=== PATIENT | male | born 1990 | race Caucasian/White ===

== ENCOUNTER 2019-09-08 11:53 | Observation (INO) | payer BC, SELFPAY ==
[2019-09-08] VITALS (11 sets, daily range): BP systolic 107–150; BP diastolic 60–86; PULSE 57–77; RESP 16–18; TEMP 36.8–37.5; O2SAT 95–99; BMI 11.8; BMI 23.7
[2019-09-08 12:23] LABS: Basophils % 0.4 %; Eosinophils # 0.4 10^3/uL (0.0-0.8); Hemoglobin 13.9 g/dL (11.7-16.6); Lymphocytes % 19.3 %; Mean Corpuscular HGB Conc 33.1 g/dL (30.0-36.0); Mean Corpuscular Hemoglobin 29.3 pg (28.0-34.0); Mean Corpuscular Volume 88.4 fL (80-94); Mean Platelet Volume 9.2 fL (7.4-10.4); Monocytes # 0.8 10^3/uL (0.2-0.9); Monocytes % 7.4 %; Neutrophils # 7.1 10^3/uL (1.8-7.7); Neutrophils % 68.6 %; Nucleated Red Blood Cells % 0 %; Platelet Count 344 10^3/cmm (130-400); Red Blood Count 4.75 10^6/uL (4.1-5.3); Red Cell Distribution Width 12.9 % (12.1-15.1); White Blood Count 10.4 10^3/uL (4.0-10.0)
--- NOTE | 2019-09-08 12:30 | CT_ITS ---
WS: [id number] CT scan of the abdomen and pelvis with IV contrast. Additional two-dimensional coronal and sagittal r econstruction was performed. 09/08/2019 Clinical Data: R sided abdominal pain, fevers Comparison: None. DLP: 537.[address] scans at [facility] use at least one of these dose optimization techniques: automat ed exposure control; mA and/or kV adjustment per patient size (includes targeted exams where dose is matched to clinical indication); or iterative reconstruction. Findings: The lower lungs show no nodules, masses or effusions. The liver, gallbladder, spleen, adrenal glands and pancreas are normal. The kidneys show equal bilateral contrast excretion with no cyst or masses. No hydronephrosis or jeimy l calculi can be seen. The abdominal aorta is normal in size. No appendicitis or diverticulitis is seen. The stomach, small bowel and colon show only extensive div erticula of the sigmoid colon. No abscess, adenopathy, ascites, mass, obstruction or free air is seen . The bladder is unremarkable. No inguinal hernia is seen. The bones of the lower thorax, lumbar spine, pelvis, and hips are normal. CT/CT abdomen pelvis w con* [id number] Impression: Negative CT scan of the abdomen and pelvis.
--- NOTE | 2019-09-08 12:31 | W.ED.ABDPA2 ---
HPI - Abdominal Pain General: Chief Complaint: Abdominal Pain Stated Complaint: ABD PAIN Time Seen by Provider: 09/08/19 12:04 Source: patient and family Mode of arrival: ambulatory Limitations: no limitations History of Present Illness: HPI narrative: Patient is a very nice 29-year-old male who presents to ED today with complaints of right-sided abdominal pain. Patient tells me the pain initially began approximately 3 to 4 days ago. He states pain improved slightly after about a day but then returned and has progressively worsened since that time. Patient states he has nausea and has had a few episodes of nonbloody vomit. He reports normal bowel and urinary habits. He does report fevers of up to 105. He states last fever was yesterday. He has been afebrile throughout today. MD elicited complaint: abdominal pain Pertinent past history: none Onset (ago): day(s) Pain Consistency: constant Location: RUQ and RLQ Severity: severe Quality: stabbing and aching Radiation: none Migration to: no migration Exacerbating factors: eating and movement Relieving factors: nothing Associated Symptoms: Reports fever(s), nausea and vomiting; Denies change in bowel habits, change in stool character, chills, coffee ground emesis, constipation, diarrhea, dysuria, hematochezia, melena and syncope Review of Systems Const: Reports: fever; Denies: chills, body aches, change in appetite, change in weight, fatigue or malaise ENMT: Denies: throat pain, enlarged tonsils or painful swallowing Card: Denies: chest pain, palpitations, irregular heart rhythm, edema, lightheadedness, syncope or pre-syncope Resp: Denies: shortness of breath, productive cough, coughing up blood or chest congestion GI: Reports: abdominal pain, nausea and vomiting; Denies: coffee grounds in vomit, diarrhea, constipation, change in bowel habits, painful bowel movements, change in stool character, blood in stool, black tarry stool, white/light colored stool or fatty stool : Denies: flank pain, difficulty urinating, painful urination, urinary frequency, urinary urgency or urinary hesitancy Musc: Denies: neck pain or back pain Skin/Breast: Denies: rash Neuro: Denies: headache, numbness in extremities, weakness in extremities or changes in sensation [facility] ED PFSH: Social History (Updated 09/08/19 @ 16:45 by Damián Luciano MD) Smoking and tobacco status: current every day smoker Alcohol intake: never Substance/Drug Use: never Physical Exam Const: COMMON NORMALS: average body habitus, oriented x3, no limitations, healthy appearing, alert and well nourished GENERAL APPEARANCE: in distress (mild secondary to pain) Resp: COMMON NORMALS: normal respiratory effort and clear to auscultation bilaterally AUSCULTATION: clear to auscultation bilaterally Cardio: COMMON NORMALS: regular rate and regular rhythm RATE: regular rate RHYTHM: regular rhythm GI: COMMON NORMALS: normal to inspection, nondistended, normoactive bowel sounds, no hepatosplenomegaly and no masses PALPATION: Yes tender (throughout R side of abdomen), Yes guarding, Yes rigid, Yes no hepatosplenomegaly and Yes other (positive psoas, obturator, and heel tap) : COMMON NORMALS: Yes no CVA tenderness BLADDER/KIDNEY EXAM: Yes no CVA tenderness Back/Pelvis: COMMON NORMALS: no CVA tenderness, thoracic and lumbar spine normal to inspection and no thoracic nor lumbar tenderness Extremity: COMMON NORMALS: normal to inspection Neuro: COMMON NORMALS: oriented x3 SENSORIUM/ORIENTATION: Yes alert Skin: COMMON NORMALS: no rashes or lesions noted GENERAL SKIN EXAM: no rashes or lesions noted Course Vital Signs: Vital signs: Vital Signs Temperature 98.9 F 09/08/19 15:05 Pulse Rate 60 09/08/19 15:05 Respiratory Rate 17 09/08/19 15:05 Blood Pressure 120/68 09/08/19 15:05 Pulse Oximetry 99 09/08/19 15:05 MDM - Abdominal Pain MDM Narrative: Medical decision making narrative: Patient CT scan was read as negative. I did contact the radiologist Dr. Moore to make certain as patient seems to be exquisitely tender. Dr. Moore stated he did not directly visualize patient's appendix but there were no secondary findings of acute appendicitis. Patient has extreme tenderness, rigid abdomen, and guarding throughout his right side. I spoke to Dr. Beltran who also evaluated patient and agrees with exam findings. He has required several doses of IV pain medications for control. We will obtain ultrasound of his right upper quadrant and speak to either hospitalist for pain control or try to consult general surgery. Dr. Jennings was contacted by Dr. Beltran and stated hospitalist could consult him if needed. Dr. Beltran spoke to Dr. Luciano who will admit patient Lab Data: Labs: Lab Results 09/08/19 09/08/19 09/08/19 Range/Units 12:14 12:14 12:14 WBC 10.4 H (4.0-10.0) 10^3/ uL RBC 4.75 (4.1-5.3) 10^6/u L Hgb 13.9 (11.7-16.6) g/dL Hct 42.0 (42.0-52.0) % MCV 88.4 (80-94) fL MCH 29.3 (28.0-34.0) pg MCHC 33.1 (30.0-36.0) g/dL RDW 12.9 (12.1-15.1) % Plt Count 344 (130-400) 10^3/c mm MPV 9.2 (7.4-10.4) fL Neut % (Auto) 68.6 % Lymph % (Auto) 19.3 % [place] % (Auto) 7.4 % Eos % (Auto) 4.0 % Baso % (Auto) 0.4 % Neut # (Auto) 7.1 (1.8-7.7) 10^3/u L Lymph # (Auto) 2.0 (0.8-4.8) 10^3/u L [place] # (Auto) 0.8 (0.2-0.9) 10^3/u L Eos # (Auto) 0.4 (0.0-0.8) 10^3/u L Baso # (Auto) 0.0 (0.0-0.1) 10^3/u L Nucleated RBC % (a uto) 0 % Nucleated RBCs # 0.0 /100WBC Sodium 137 (136-145) mmol/L Potassium 3.6 (3.5-5.1) mmol/L Chloride 97 L (98-107) mmol/L Carbon Dioxide 26 (22-29) mmol/L Anion Gap 17.6 (5-19) BUN 8 (6-20) mg/dL Creatinine 0.8 (0.7-1.2) mg/dL GFR Calculation 114.3 (90-130) mL/min Glucose 117 H (65-115) mg/dL Calculated Osmolal ity 281 L (285-295) mOsm/k g Lactate 0.9 (0.5-2.2) mmol/L Calcium 9.7 (8.5-10.5) mg/dL Total Bilirubin 0.3 (0.15-1.2) mg/dL AST 19 (0-40) U/L ALT 22 (0-41) U/L Alkaline Phosphata se 66 (40-130) IU/L C-Reactive Protein (0.0-4.9) mg/L Total Protein 7.6 (6.6-8.7) g/dL Albumin 4.4 (3.5-5.2) g/dL Globulin 3.2 (1.3-4.6) g/dL Lipase 12 L (13-60) U/L Procalcitonin (0-0.5) ng/mL Urine Color (Yellow) Urine Appearance (CLEAR) Urine pH (5-7) Ur Specific Gravit y (1.005-1.030) Urine Protein (Negative) Urine Glucose (UA) (Normal) Urine Ketones (Negative) Urine Blood (Negative) Urine Nitrate (Negative) Urine Bilirubin (NEGATIVE) Urine Urobilinogen (Negative) mg/dL Ur Leukocyte Ade ase (Negative) 09/08/19 09/08/19 09/08/19 Range/Units 12:14 12:14 13:12 WBC (4.0-10.0) 10^3/ uL RBC (4.1-5.3) 10^6/u L Hgb (11.7-16.6) g/dL Hct (42.0-52.0) % MCV (80-94) fL MCH (28.0-34.0) pg MCHC (30.0-36.0) g/dL RDW (12.1-15.1) % Plt Count (130-400) 10^3/c mm MPV (7.4-10.4) fL Neut % (Auto) % Lymph % (Auto) % [place] % (Auto) % Eos % (Auto) % Baso % (Auto) % Neut # (Auto) (1.8-7.7) 10^3/u L Lymph # (Auto) (0.8-4.8) 10^3/u L [place] # (Auto) (0.2-0.9) 10^3/u L Eos # (Auto) (0.0-0.8) 10^3/u L Baso # (Auto) (0.0-0.1) 10^3/u L Nucleated RBC % (a uto) % Nucleated RBCs # /100WBC Sodium (136-145) mmol/L Potassium (3.5-5.1) mmol/L Chloride (98-107) mmol/L Carbon Dioxide (22-29) mmol/L Anion Gap (5-19) BUN (6-20) mg/dL Creatinine (0.7-1.2) mg/dL GFR Calculation (90-130) mL/min Glucose (65-115) mg/dL Calculated Osmolal ity (285-295) mOsm/k g Lactate (0.5-2.2) mmol/L Calcium (8.5-10.5) mg/dL Total Bilirubin (0.15-1.2) mg/dL AST (0-40) U/L ALT (0-41) U/L Alkaline Phosphata se (40-130) IU/L C-Reactive Protein 21.8 H (0.0-4.9) mg/L Total Protein (6.6-8.7) g/dL Albumin (3.5-5.2) g/dL Globulin (1.3-4.6) g/dL Lipase (13-60) U/L Procalcitonin 0.23 (0-0.5) ng/mL Urine Color Yellow (Yellow) Urine Appearance Clear (CLEAR) Urine pH 7 (5-7) Ur Specific Gravit y 1.000 L (1.005-1.030) Urine Protein Neg (Negative) Urine Glucose (UA) Norm (Normal) Urine Ketones 1+ H (Negative) Urine Blood Neg (Negative) Urine Nitrate Negative (Negative) Urine Bilirubin Neg (NEGATIVE) Urine Urobilinogen Norm (Negative) mg/dL Ur Leukocyte Ade ase Negative (Negative) Discharge Plan Discharge Patient Disposition: Admitted As Inpatient Clinical Impression: Uncontrolled pain Abdominal pain Qualifiers: Abdominal location: right lower quadrant Qualified Code(s): R10.31 - Right lower quadrant pain Condition: Stable Referrals: Vasu Willis MD [Primary Care Provider] - Coding Level of Care Code ED Research And Development Specialist for Chg Fwd Exam Comprehensive
[2019-09-08] MEDS: ondansetron 2 mg/ML SDV 2 mL 4 MG IVP (12:34)
[2019-09-08] MEDS: sodium chloride 0.9% 1,000 ML 999 ML IV (12:34)
[2019-09-08] MEDS: morphine 4 mg/mL SDV 1 mL IVP ×2 (12:37→15:02)
[2019-09-08 12:41] LABS: Alanine Aminotransferase 22 U/L (0-41); Albumin Level 4.4 g/dL (3.5-5.2); Alkaline Phosphatase 66 IU/L (40-130); Anion Gap 17.6 (5-19); Aspartate Amino Transferase 19 U/L (0-40); Blood Urea Nitrogen 8 mg/dL (6-20); Calcium 9.7 mg/dL (8.5-10.5); Carbon Dioxide 26 mmol/L (22-29); Chloride 97 mmol/L (98-107); Globulin 3.2 g/dL (1.3-4.6); Glomerular Filtration Rate 114.3 mL/min (90-130); Glucose 117 mg/dL (65-115); Lipase 12 U/L (13-60); Osmolality Calculated 281 mOsm/kg (285-295); Potassium 3.6 mmol/L (3.5-5.1); Sodium 137 mmol/L (136-145); Total Bilirubin 0.3 mg/dL (0.15-1.2); Total Protein 7.6 g/dL (6.6-8.7)
[2019-09-08] MEDS: iohexol 300 mg/mL 100 mL Btl IV (12:49)
[2019-09-08 13:30] LABS: Add Urine Microscopic? NO
[2019-09-08 13:32] LABS: Bilirubin Urine Neg (NEGATIVE); Blood Urine Neg (Negative); Glucose Urine UA Norm (Normal); Ketones Urine 1+ (Negative); Leukocyte Esterase Urine Negative (Negative); Nitrate Urine Negative (Negative); Protein Urine Neg (Negative); Urine Appearance Clear (CLEAR); Urine Color Yellow (Yellow); Urobilinogen Urine Norm (Negative); pH Urine 7 (5-7)
[2019-09-08 13:37] LABS: Lactate (Lactic Acid level) 0.9 mmol/L (0.5-2.2)
[2019-09-08] MEDS: fentaNYL 50 mcg/mL INJ 2mL IVP (13:38)
[2019-09-08 14:14] LABS: C Reactive Protein 21.8 mg/L (0.0-4.9)
--- NOTE | 2019-09-08 14:53 | US_ITS ---
WS: [id number] ABDOMINAL ULTRASOUND LIMITED REASON FOR VISIT: RUQ pain. TECHNIQUE: Grayscale and Doppler ultrasound examination of the abdomen. FINDINGS: Pancreas: There is normal. Abdominal aorta and IVC: Appears normal. Liver: Liver measures 14.9 cm in length. Normal hepatopedal circulation. Liver measured 14.87 cm. Gallbladder: Gallbladder wall thickness measures 0.2 mm. No stones identified. Right kidney: Right kidney measures 11.9 cm x 5.9 cm x 4.7 cm. No hydronephrosis or stones US/US gall bladder [id number] IMPRESSION: Normal abdominal survey by ultrasound.
--- NOTE | 2019-09-08 16:40 | P.HP_ITS ---
Providers/Chief Complaint Primary Care Provider: Samm Willis Chief Complaint: ABD PAIN History of Present Illness Patrick Alvarez is a 29 year old male with no significant past medical history, who does not have a primary care physician, has not sought medical attention in many years, who presents the emergency room due to abdominal pain for 4 days. 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 But patient thought nothing much of his pain, said he followed through it, patient states that the pain episodes became much more frequent, much more severe, more longer lasting, he was spiking fevers as high as 103, poor appetite, last meal was last , having appropriate bowel movements, last bowel movement was 24 hours ago, no dysuria, no hematuria, no recent travel. Patient does state that recently his son was diagnosed with infectious mononucleosis. Denies sore throat. Denies tender lymphadenopathy. Denies history of food poisoning. Patient states that the abdominal pain then progressed to his general abdomen, particular in the right upper quadrant and left lower quadrant, and in the umbilicus. But primarily his pain was centered in the right lower quadrant. Denies any surgeries. No URI symptoms. Review of Systems Const: Reports: fever, fatigue and malaise; Denies: chills Eyes: Denies: change in vision or blurry vision ENMT: Denies: nasal congestion Resp: Denies: shortness of breath, productive cough, non-productive cough or wheezing GI: Reports: abdominal pain, nausea and feeling full early; Denies: vomiting, vomiting blood, diarrhea, constipation, blood in stool or black tarry stool : Denies: flank pain, difficulty urinating, painful urination or urinary frequency Musc: Denies: neck pain or back pain Skin/Breast: Denies: rash Neuro: Denies: headache, dizziness or vertigo Psych: Denies: anxiety or depression Endo: Denies: excessive urination or excessive thirst Medications/Allergies Home Medications Medication Instructions Recorded Confirmed Last Taken Type No Known Home Medications 09/08/19 09/08/19 Unknown History Allergies Allergy/AdvReac Type Severity Reaction Status Date / Time Penicillins Allergy Unknown Verified 09/08/19 12:11 Sulfa (Sulfonamide Allergy ALGY-Difficulty Verified 09/08/19 12:11 Antibiotics) Breathing PFSH Acute PFSH: Social History (Updated 09/08/19 @ 16:45 by Damián Luciano MD) Smoking and tobacco status: current every day smoker Alcohol intake: never Substance/Drug Use: never Vitals/I&O/Wt Last Vital Signs Temp 98.9 F 09/08/19 15:05 Pulse 60 09/08/19 15:05 Resp 17 09/08/19 15:05 BP 120/68 09/08/19 15:05 Pulse Ox 99 09/08/19 15:05 09/08/19 09/08/19 09/08/19 06:59 14:59 22:59 Intake Total 1000 / 1000 Balance 1000 / 1000 Weight last 48 hrs Weight 36.287 kg Physical Exam Const: COMMON NORMALS: no apparent distress and oriented x3 GENERAL APPEARANCE: cooperative and comfortable HENMT: COMMON NORMALS: normocephalic HEAD & SCALP: normocephalic Eye: COMMON NORMALS: PERRL, EOMs intact bilaterally and no papilledema G ENERAL EYE: normal appearance of both eyes PUPIL: Yes PERRL DIRECT OPHTHALMOSCOPY: Yes no papilledema Neck/C-Spine: COMMON NORMALS: full ROM, no lymphadenopathy, no JVD and thyroid normal THYROID: thyroid normal Lymph: LYMPHATIC: no lymphadenopathy noted Resp: COMMON NORMALS: normal respiratory effort, no retractions, no use of accessory muscles and clear to auscultation bilaterally AUSCULTATION: clear to auscultation bilaterally Cardio: COMMON NORMALS: no JVD, regular rate, regular rhythm, S1 normal heart sound, S2 normal heart sound, no gallops, no clicks and no murmurs RATE: regu lar rate RHYTHM: regular rhythm HEART SOUNDS: S1 normal and S2 normal GI: COMMON NORMALS: normal to inspection, nondistended, normoactive bowel sounds, soft to palpation and no hepatosplenomegaly PALPATION: Yes soft, Yes tender Details: LLQ, RLQ and RUQ, Yes guarding in the RLQ and in the RUQ, No rigid, Yes no hepatosplenomegaly, No mass and Yes rebound tenderness present Details: McBurney's point and periumbilical PERCUSSION: normal to percussion Extremity: COMMON NORMALS: normal to inspection, full ROM and no pedal edema Neuro: COMMON NORMALS: oriented x3, CN's II-XII intact bilaterally, moves all extremities and no focal motor deficits Psych: COMMON NORMALS: mental status grossly normal, thought process normal and cooperative THOUGHT PROCESS: normal thought process Data : 09/08/19 12:14 09/08/19 12:14 Micro: Microbiology 09/08/19 13:19 Blood Culture - Preliminary Blood SPECIMEN COLLECTED 09/08/19 12:14 Blood Culture - Preliminary Blood SPECIMEN COLLECTED A&P Assessment and plan (1) Abdominal pain: -Normotensive, afebrile, no significant leukocytosis, no significant LFT abnormalities, no alk phos elevation, no significant inflammatory marker ab normalities -CT scan does show some mild colitis, duodenitis, thickening around hepatic flexure -Possibly mesenteric adenitis -Appendix is within normal limits -Patient does have quite guarding, tenderness, rebound tenderness in the right lower quadrant Plan: -Admit to general medical floors, IV fluids, pain control, serial abdominal exams, monitor for fevers Status: Acute Qualifiers: Abdominal location: right lower quadrant Qualified Code(s): R10.31 - Right lower quadrant pain Code(s): R10.9 - Unspecified abdominal pain Attestations Medical Necessity Statement*: Patient requires hospitalization, outpatient with observation, for abdominal pain Coding Level of Care Code Acute Supervisor Channel Process for [facility] Diagnoses Abdominal pain R10.31 Abdominal location: right lower quadrant
[2019-09-08 16:44] LABS: Procalcitonin 0.23 ng/mL (0-0.5)
[2019-09-08 17:11] LABS: Erythrocyte Sedimentation Rate 33 mm/hr (0-10)
[2019-09-08] MEDS: enoxaparin 40 mg/0.4 mL Syringe SUBCUT (17:52)
[2019-09-08] MEDS: sodium chloride 0.9% 1,000 ML 100 ML IV (17:52)
[2019-09-08] MEDS: morphine 4 mg/mL SDV 1 mL 2 MG IVP (19:21)
[2019-09-09] VITALS (10 sets, daily range): BP systolic 105–129; BP diastolic 59–74; PULSE 53–62; RESP 18–22; TEMP 36.6–37; O2SAT 96–99
[2019-09-09] MEDS: sodium chloride 0.9% 1,000 ML 100 ML IV (03:14)
[2019-09-09] MEDS: morphine 4 mg/mL SDV 1 mL 2 MG IVP ×3 (04:51→14:38)
[2019-09-09 05:59] LABS: Basophils # 0.1 10^3/uL (0.0-0.1); Basophils % 0.7 %; Eosinophils # 0.7 10^3/uL (0.0-0.8); Eosinophils % 7.6 %; Hematocrit 40.1 % (42.0-52.0); Hemoglobin 12.9 g/dL (11.7-16.6); Lymphocytes # 2.7 10^3/uL (0.8-4.8); Lymphocytes % 31.2 %; Mean Corpuscular HGB Conc 32.2 g/dL (30.0-36.0); Mean Corpuscular Hemoglobin 29.1 pg (28.0-34.0); Mean Corpuscular Volume 90.5 fL (80-94); Mean Platelet Volume 9.6 fL (7.4-10.4); Monocytes # 0.7 10^3/uL (0.2-0.9); Monocytes % 8.1 %; Neutrophils # 4.5 10^3/uL (1.8-7.7); Neutrophils % 51.8 %; Nucleated Red Blood Cells % 0 %; Platelet Count 329 10^3/cmm (130-400); Red Blood Count 4.43 10^6/uL (4.1-5.3); Red Cell Distribution Width 13.1 % (12.1-15.1); White Blood Count 8.7 10^3/uL (4.0-10.0)
[2019-09-09 06:03] LABS: Alanine Aminotransferase 16 U/L (0-41); Albumin Level 3.9 g/dL (3.5-5.2); Alkaline Phosphatase 59 IU/L (40-130); Anion Gap 14.9 (5-19); Aspartate Amino Transferase 12 U/L (0-40); Blood Urea Nitrogen 7 mg/dL (6-20); Calcium 9.2 mg/dL (8.5-10.5); Carbon Dioxide 26 mmol/L (22-29); Chloride 103 mmol/L (98-107); Globulin 2.7 g/dL (1.3-4.6); Glomerular Filtration Rate 114.3 mL/min (90-130); Glucose 97 mg/dL (65-115); Osmolality Calculated 286 mOsm/kg (285-295); Potassium 3.9 mmol/L (3.5-5.1); Sodium 140 mmol/L (136-145); Total Bilirubin 0.4 mg/dL (0.15-1.2); Total Protein 6.6 g/dL (6.6-8.7)
--- NOTE | 2019-09-09 08:00 | PC.NURSE ---
patient claims pain goes away and comes back. Patient says that the pain is sharp and in his right lower abdominal and has moved up to the bottom of his rib cage.
--- NOTE | 2019-09-09 09:53 | PC.NURSE ---
patient was in too much pain. Asked the patient if he would like me to check back with him later and he said yes.
--- NOTE | 2019-09-09 11:27 | PC.CHAP ---
Pastoral Care Encounter/Spiritual Assessment Type of Contact [] Declined economic forecaster visit [] Patient/Family/Request visit [] Outpatient visit [] Follow-up visit [] Physician referral [] Code/Alert [x] Routine visit [] Staff referral [] Actively dying [] Patient sleeping [] Family support [] [] Out of room [] Palliative care [] [] Receiving care in room [] Pre-surgical visit [] Trauma [] Long length of stay [] ICU visit [] Other: Relational/Emotional Strength [x] Patient feels connected with others/family/visitors/staff [] Distress [] Loneliness/isolation [] Abandonment Spirituality of Patient [x] Person of Prema [x] Attends Adventism of their Prema [x] Believes in Prayer [x] Reads Bible or Restorationism materials [] There are Spiritual issues to be addressed Fuel House Attendant Interventions [x] Prayer [x] Active listening [x] Non-anxious presence [x] Spiritual/emotional support [] Crisis/trauma care [x] Spiritual counseling [] Bereavement support [] Provided bereavement packet [] Provided Bible/devotional materials [] Provided toy/stuffed animal, coloring book to patient or family member [] Provided Communion [] Anointing/[place] [] Salvation [] Completed spiritual assessment [] Other: Impact on Illness or Injury [] Angry [] Fearful [] Anxious [] Often cries [] Exhaustion [] Unable to work [] Unable to attend sabianist [] Unable to walk/stand [] Unable to read [] Unable to drive [] Unable to eat/drink [] Unable to sleep [] Unable to be with family [] Patient intubated [x] Other: Summary Patient is and has 4-small children. Time spent with patient 5 minutes
[2019-09-09] MEDS: sodium chloride 0.9% 1,000 ML 125 ML IV ×2 (13:35→20:20)
--- NOTE | 2019-09-09 14:52 | PM.PN ---
Subjective Subjective: Interval history: This morning patient remained afebrile, normotensive, on room air, no significant inflammatory abnormalities, no significant leukocytosis, however patient continues to have significant pain and tenderness and guarding in the right lower quadrant and in the right lower quadrant, would like to try something more substantial Vitals/I&O/Wt Last Vital Signs Temp 98.4 F 09/09/19 11:25 Pulse 56 L 09/09/19 11:25 Resp 18 09/09/19 14:38 BP 115/70 09/09/19 11:25 Pulse Ox 96 09/09/19 11:25 09/08/19 09/09/19 09/09/19 22:59 06:59 14:59 Intake Total 240 / 1240 936.667 / 2176.667 540 / 540 Output Total 780 / 780 700 / 700 Balance 240 / 1240 156.667 / 1396.667 -160 / -160 Weight last 48 hrs Weight 72.83 kg Weight 36.287 kg Physical Exam Const: COMMON NORMALS: no apparent distress and oriented x3 GENERAL APPEARANCE: cooperative and comfortable Neck/C-Spine: COMMON NORMALS: no JVD Lymph: LYMPHATIC: no lymphadenopathy noted Resp: COMMON NORMALS: normal respiratory effort, no retractions, no use of accessory muscles and clear to auscultation bilaterally AUSCULTATION: clear to auscultation bilaterally Cardio: COMMON NORMALS: no JVD, regular rate, regular rhythm, S1 normal heart sound, S2 normal heart sound, no gallops, no clicks and no murmurs RATE: regular rate RHYTHM: regular rhythm HEART SOUNDS: S1 normal and S2 normal GI: COMMON NORMALS: normal to inspection, nondistended, normoactive bowel sounds, soft to palpation and no hepatosplenomegaly PALPATION: Yes soft, Yes tender, Yes guarding in the RLQ and in the RUQ, No rigid, Yes no hepatosplenomegaly, No mass and Yes rebound tenderness present Details: McBurney's point and periumbilical PERCUSSION: normal to percussion Neuro: COMMON NORMALS: oriented x3 Data : 09/09/19 04:52 09/09/19 04:52 Micro: Microbiology 09/08/19 13:19 Blood Culture - Preliminary Blood NEGATIVE TO DATE 09/08/19 12:14 Blood Culture - Preliminary Blood NEGATIVE TO DATE A&P Assessment and plan (1) Abdominal pain: -Normotensive, afebrile, no significant leukocytosis, no significant LFT abnormalities, no alk phos elevation, no significant inflammatory marker abnormalities -CT scan does show some mild colitis, duodenitis, thickening around hepatic flexure -Possibly mesenteric adenitis -Appendix is within normal limits -Patient does have quite guarding, tenderness, rebound tenderness in the right lower quadrant Plan: -, IV fluids, pain control, serial abdominal exams, monitor for fevers -If patient's symptoms persist will consider repeating CT scan in 24 hours -We will start treatment for possible irritable bowel syndrome dicyclomine and Elavil Status: Acute Qualifiers: Abdominal location: right lower quadrant Qualified Code(s): R10.31 - Right lower quadrant pain Code(s): R10.9 - Unspecified abdominal pain Attestations Medical Necessity Statement*: Patient requires hospitalization for abdominal pain Coding Level of Care Code Acute Apartment Maintenance for [facility] Diagnoses Abdominal pain R10.31 Abdominal location: right lower quadrant
[2019-09-09] MEDS: amitriptyline 25 mg Tablet PO (20:21)
[2019-09-10] VITALS (7 sets, daily range): BP systolic 97–129; BP diastolic 51–84; PULSE 54–64; RESP 16–18; TEMP 36.5–37.3; O2SAT 96–99
[2019-09-10] MEDS: sodium chloride 0.9% 1,000 ML 125 ML IV ×2 (03:47→12:17)
[2019-09-10 06:47] LABS: Basophils # 0.1 10^3/uL (0.0-0.1); Eosinophils # 0.6 10^3/uL (0.0-0.8); Eosinophils % 8.3 %; Hematocrit 36.8 % (42.0-52.0); Hemoglobin 11.9 g/dL (11.7-16.6); Lymphocytes # 2.5 10^3/uL (0.8-4.8); Lymphocytes % 32.9 %; Mean Corpuscular HGB Conc 32.3 g/dL (30.0-36.0); Mean Corpuscular Hemoglobin 29.1 pg (28.0-34.0); Mean Platelet Volume 9.3 fL (7.4-10.4); Monocytes # 0.6 10^3/uL (0.2-0.9); Monocytes % 7.7 %; Neutrophils # 3.8 10^3/uL (1.8-7.7); Neutrophils % 49.4 %; Nucleated Red Blood Cells % 0 %; Platelet Count 295 10^3/cmm (130-400); Red Blood Count 4.09 10^6/uL (4.1-5.3); Red Cell Distribution Width 12.8 % (12.1-15.1); White Blood Count 7.7 10^3/uL (4.0-10.0)
[2019-09-10 07:07] LABS: Alanine Aminotransferase 11 U/L (0-41); Albumin Level 3.3 g/dL (3.5-5.2); Alkaline Phosphatase 52 IU/L (40-130); Anion Gap 11.1 (5-19); Aspartate Amino Transferase 11 U/L (0-40); Blood Urea Nitrogen 4 mg/dL (6-20); C Reactive Protein 4.3 mg/L (0.0-4.9); Calcium 8.8 mg/dL (8.5-10.5); Carbon Dioxide 28 mmol/L (22-29); Chloride 108 mmol/L (98-107); Globulin 3.1 g/dL (1.3-4.6); Glomerular Filtration Rate 114.3 mL/min (90-130); Glucose 108 mg/dL (65-115); Magnesium 2.1 mg/dL (1.7-2.3); Osmolality Calculated 292 mOsm/kg (285-295); Phosphorus 2.7 mg/dL (2.5-4.5); Potassium 4.1 mmol/L (3.5-5.1); Sodium 143 mmol/L (136-145); Total Bilirubin 0.3 mg/dL (0.15-1.2); Total Protein 6.4 g/dL (6.6-8.7)
[2019-09-10 07:09] LABS: Procalcitonin 0.07 ng/mL (0-0.5)
--- NOTE | 2019-09-10 09:22 | CT_ITS ---
WS: [id number] CT ABDOMEN PELVIS TECHNIQUE: Contrast-enhanced CT of the abdomen and pelvis with coronal and sagittal reformatted image s. CLINICAL INFORMATION: rlq pain COMPARISON: None. DLP: 539.[address] scans at [facility] use at least one of these dose optimization techniques: automat ed exposure control; mA and/or kV adjustment per patient size (includes targeted exams where dose is matched to clinical indication); or iterative reconstruction. FINDINGS: Liver is normal in appearance. Gallbladder appears normal. Normal GE junction. Previously visualized mild thickening involving the hepatic flexure and proximal transverse colon suspicious for colitis ap pears to have resolved. Air-fluid level within the stomach. Pancreas appears normal. No definite evid ence of acute pancreatitis. Normal pancreatic duct. Mild thickening at the gastric pylorus and proximal duodenum can be seen with gastroduodenitis improv ed from previous. Mesenteric edema in this region has improved from previous. Appendix in the right lower quadrant is normal. No evidence of acute appendicitis. Fluid-filled appen jun measuring 5 to 6 mm. Sigmoid diverticulosis. No evidence of acute diverticulitis. Slight atelecta sis in the lung bases. Adrenal glands are normal. Normal renal parenchymal enhancement. No hydronephrosis. CT/CT abdomen pelvis w con* [id number] IMPRESSION: 1. No evidence of acute appendicitis. Normal caliber fluid-filled appendix. 2. Mild thickening of the hepatic flexure and proximal transverse colon suspic ious for colitis appears improved/resolved from previous. 3. Small amount of gastric wall thickening involving the pylorus and proximal duodenum can be seen with gastroduodenitis. This is improved from previous. 4. No hydronephrosis.
--- NOTE | 2019-09-10 09:49 | P.CONIM_ITS ---
Providers/Reason For Consult Consulting Physican/Specialty*: General Surgery Evan Jennings MD Reason for Consult*: Right upper quadrant and right lower quadrant abdominal pain. Attending Physician: Damián Luciano MD Primary Care Provider: Harsh Crockett MD History of Present Illness History of Present Illness Patrick Alvarez is a 29 year old male who says he developed some right-sided abdominal pain about 6 days ago. This was initially unassociated with other symptoms. He has no history of trauma. He denies any changes in bowel habits. He says it persisted for several days and then 3 days ago got quite a bit better for 24 hours. The following day, however, it came back even worse. By that time the patient was having fevers and reports a fever of up to over 105 on one occasion (temporal thermometer at home). He has had some nausea and vomiting on one occasion but seems to suggest that that was from taking some cold medication on an empty stomach. He denies any hematemesis. He came to the emergency room and a CAT scan revealed no obvious surgical issues. On subsequent review with the radiologist, there may have been some thought that there was mild inflammation of the duodenum/hepatic flexure of the colon. A gallbladder ultrasound was normal. He was admitted for further management. Since the patient has been admitted he has been afebrile. His right-sided abdominal pain has persisted. He seems to suggest that most of his seems to be in the right upper quadrant currently. The patient does report that his son was diagnosed with mononucleosis about 4 weeks ago. The patient denies any history of peptic ulcer disease. He does not take NSAIDs on a regular basis. He does smoke and chew tobacco products, as well as drinks alcohol fairly regularly. Review of Systems General: Reports: 10 or more systems reviewed and unremarkable except in HPI and below Const: Reports: fever GI: Reports: abdominal pain; Denies: change in stool character Meds/Allergies Home Medications and Allergies Home Medications Medication Instructions Recorded Confirmed Type No Known Home Medications 09/08/19 09/08/19 History Allergies Allergy/AdvReac Type Severity Reaction Status Date / Time Penicillins Allergy Unknown Verified 09/08/19 12:11 Sulfa (Sulfonamide Allergy ALGY-Difficulty Verified 09/08/19 12:11 Antibiotics) Breathing Current Medications Current Medications Generic Name Dose Route Start Last Admin Trade Name Freq PRN Reason Stop Dose Admin Amitriptyline HCl 25 mg 09/09/19 21:00 09/09/19 20:21 Elavil PO 25 mg BEDTIME GEOVANNA Administration Enoxaparin Sodium 40 mg 09/09/19 18:00 09/09/19 19:09 Lovenox SUBCUT Not Given Q24H GEOVANNA Sodium Chloride 1,000 mls @ 125 mls/hr 09/09/19 10:30 09/10/19 03:47 Sodium Chloride 0.9% IV 125 mls/hr .Q8H GEOVANNA Administration Morphine Sulfate 2 mg 09/09/19 10:22 09/09/19 14:38 Morphine IVP 2 mg Q4H PRN Administration PAIN PFSH Acute PFSH: Medical History (Updated 09/10/19 @ 09:57 by Evan Jennings MD) No significant past medical history Surgical History (Updated 09/10/19 @ 10:10 by Evan Jennings MD) MRSA (methicillin resistant Staphylococcus aureus) infection hand abscess culture No significant past surgical history Social History (Updated 09/10/19 @ 09:58 by Evan Jennings MD) Smoking and tobacco status: current every day smoker cigarettes Packs smoked per day: 1.5 and smokeless tobacco Alcohol intake: current Vitals/I&O/Wt Last Vital Signs Temp 98.9 F 09/10/19 08:00 Pulse 57 L 09/10/19 08:00 Resp 16 09/10/19 08:00 BP 103/51 09/10/19 08:00 Pulse Ox 98 09/10/19 08:00 09/09/19 09/10/19 09/10/19 22:59 06:59 14:59 Intake Total 1168.75 / 1708.75 931.25 / 2640.00 Output Total 1100 / 1800 Balance 68.75 / -91.25 931.25 / 840.00 Weight last 48 hrs Weight 160 lb 9 oz Weight 80 lb Physical Exam Narrative: EXAM NARRATIVE: The patient was encountered in his hospital room. He does not appear to be in any acute distress. The pupils are equal. No neck masses are palpated. No carotid bruits are heard. The lungs are clear anteriorly. The heart is regular. The abdomen reveals bowel sounds and is nondistended and soft, but the patient does have significant tenderness in the epigastrium and right upper quadrant. Perhaps a little bit less so in the right lower quadrant. No obvious masses are palpated. The extremities reveal no obvious abnormalities. Neurologically the patient is grossly intact. Data Labs: Other Labs: Laboratory Tests 09/10/19 06:19 Total Bilirubin 0.3 ALT 11 Alkaline Phosphata se 52 Micro: Micro: Microbiology 09/08/19 13:19 Blood Culture - Pr eliminary Blood NEGATIVE TO VELMA E 09/08/19 12:14 Blood Culture - Pr eliminary Blood NEGATIVE TO VELMA E Imaging^: CT Abd/Pel: Radiologist's impression: CT abdomen/pelvis 09/08/2019 impression: Negative CT scan of the abdomen and pelvis. US: Radiologist's impression: Abdominal ultrasound 09/08/2019 iMPRESSION: Normal abdominal survey by ultrasound. A&P Assessment and plan (1) Abdominal pain: The source of the patient's pain is not immediately clear. I do favor some type of a viral syndrome/enteritis. His white blood cell count remains normal and he is afebrile. Given his possible duodenal inflammation, I am going to start some Protonix to see if this makes any difference in how he is feeling. The patient is scheduled to undergo a repeat CAT scan today. I will follow-up with him following that study. Status: Acute Qualifiers: Abdominal location: right lower quadrant Qualified Code(s): R10.31 - Right lower quadrant pain Code(s): R10.9 - Unspecified abdominal pain Consult Attestations Medical Necessity Statement: See admitting service's notation. Coding Level of Care Code Acute Launch Check Out for [facility] Diagnoses Abdominal pain R10.31 Abdominal location: right lower quadrant
[2019-09-10] MEDS: HYDROmorphone 1 mg/mL INJ 1 mL 0.5 MG IVP (09:51)
[2019-09-10] MEDS: iohexol 300 mg/mL 100 mL Btl IV (10:20)
[2019-09-10] MEDS: pantoprazole 40 mg SDV IVP (12:16)
[2019-09-10] MEDS: dicyclomine 10 mg Capsule PO (13:17)
--- NOTE | 2019-09-10 14:53 | PM.DCS ---
Discharge Providers Date of Admission: 09/08/19 16:52 Date of Discharge: September 10, 2019 Attending Provider at Admission: Damián Luciano MD Attending Provider at Discharge: Damián Luciano MD Primary Care Provider: Harsh Crockett MD Diagnoses at Discharge Discharge Diagnosis (1) Abdominal pain: Status: Acute Qualifiers: Abdominal location: right lower quadrant Qualified Code(s): R10.31 - Right lower quadrant pain Reason for Visit Reason for Visit: Reason For Visit: ABD PAIN Hospital Course Discharge Summary: This is a 29-year-old male with no significant past medical history who presented to the emergency room due to complaints of abdominal pain. Patient was admitted for right lower quadrant pain, tenderness, guarding, that was quite pronounced. All laboratory work-up was within normal limits, no significant inflammatory elevations, no fevers as inpatient, patient CT scan of the abdomen with IV contrast showed no evidence of acute appendicitis, normal caliber fluid-filled appendix, mild thickening of the hepatic flexure and proximal transverse colon suspicious for colitis , small amount of gastric wall thickening involving the pylorus and proximal duodenum can be seen with gastroduodenitis. However patient continued to have right lower quadrant pain, pain, tenderness, guarding, he was monitored over the next 48 hours. Patient remained afebrile, no significant leukocytosis, no significant laboratory abnormalities, repeat CT scan showed no clinically significant acute findings. Surgery was consulted, recommended no acute surgical intervention. Patient was given a couple doses of Bentyl, which brought his pain down to minimal, likely patient has irritable bowel syndrome, he was discharged on dicyclomine, Elavil, and a short supply of Toradol and [place] for breakthrough pain, with a follow-up with his primary care provider as outpatient. Additionally was given a handout on irritable bowel syndrome and a FODMAP diet. Physical Exam Const: COMMON NORMALS: no apparent distress and oriented x3 HENMT: COMMON NORMALS: normocephalic HEAD & SCALP: normocephalic Neck/C-Spine: COMMON NORMALS: no JVD Resp: COMMON NORMALS: normal respiratory effort, no retractions, no use of accessory muscles and clear to auscultation bilaterally AUSCULTATION: clear to auscultation bilaterally Cardio: COMMON NORMALS: no JVD, regular rate, regular rhythm, S1 normal heart sound and S2 normal heart sound RATE: regular rate RHYTHM: regular rhythm HEART SOUNDS: S1 normal and S2 normal GI: COMMON NORMALS: normal to inspection, nondistended, normoactive bowel sounds, no hepatosplenomegaly, no masses and no bruits AUSCULTATION: Yes normoactive bowel sounds PALPATION: Yes tender Details: RLQ and Yes no hepatosplenomegaly Extremity: COMMON NORMALS: normal capillary refill, no clubbing, cyanosis or edema, no calf tenderness and no pedal edema Neuro: COMMON NORMALS: oriented x3 Psych: COMMON NORMALS: mental status grossly normal Discharge Data Data Completed and Pending: Completed Studies During Hospitalization Category Date Time Status CT abdomen pelvis w con* [id number] Stat Cat Scan 09/10/19 09:[address] abdomen pelvis w con* [id number] Urge nt Cat Scan 09/08/19 12:30 Completed US gall bladder 7 [id number] Urgent Ultrasound 09/08/19 14:53 Completed Pending at discharge Category Date Time Status Blood Culture Sta t Lab 09/08/19 13:19 Results C Reactive Protei n AM LABS Lab 09/11/19 04:00 Ordered C Reactive Protei n AM LABS Lab 09/12/19 04:00 Ordered Complete Blood Co unt w/Auto AM LABS Lab 09/11/19 04:00 Ordered Complete Blood Co unt w/Auto AM LABS Lab 09/12/19 04:00 Ordered Comprehensive Met abolic Panel AM LA BS Lab 09/11/19 04:00 Ordered Comprehensive Met abolic Panel AM LA BS Lab 09/12/19 04:00 Ordered Magnesium AM LABS Lab 09/11/19 04:00 Ordered Magnesium AM LABS Lab 09/12/19 04:00 Ordered Phosphorus AM LAB S Lab 09/11/19 04:00 Ordered Phosphorus AM LAB S Lab 09/12/19 04:00 Ordered Procalcitonin AM LABS Lab 09/11/19 04:00 Ordered Procalcitonin AM LABS Lab 09/12/19 04:00 Ordered Labs from last 24 hours 09/10/19 09/10/19 09/10/19 06:19 06:19 06:19 WBC 7.7 RBC 4.09 L Hgb 11.9 Hct 36.8 L MCV 90.0 MCH 29.1 MCHC 32.3 RDW 12.8 Plt Count 295 MPV 9.3 Neut % (Auto) 49.4 Lymph % (Auto) 32.9 Bailey % (Auto) 7.7 Eos % (Auto) 8.3 Baso % (Auto) 1.0 Neut # (Auto) 3.8 Lymph # (Auto) 2.5 Bailey # (Auto) 0.6 Eos # (Auto) 0.6 Baso # (Auto) 0.1 Nucleated RBC % (a uto) 0 Nucleated RBCs # 0.0 Sodium 143 Potassium 4.1 Chloride 108 H Carbon Dioxide 28 Anion Gap 11.1 BUN 4 L Creatinine 0.8 GFR Calculation 114.3 Glucose 108 Calculated Osmolal ity 292 Calcium 8.8 Phosphorus 2.7 Magnesium 2.1 Total Bilirubin 0.3 AST 11 ALT 11 Alkaline Phosphata se 52 C-Reactive Protein 4.3 Total Protein 6.4 L Albumin 3.3 L Globulin 3.1 Procalcitonin 0.07 Vitals: Last Vital Signs Temp 98.7 F 09/10/19 11:43 Pulse 54 L 09/10/19 11:43 Resp 16 09/10/19 11:43 BP 129/84 09/10/19 11:43 Pulse Ox 99 09/10/19 11:43 Discharge Plan Discharge Patient Disposition: Home, Self-Care Condition: Stable Prescriptions: New hydrocodone-acetaminophen 5-325 mg Tablet 1 tab PO Q12H PRN (Reason: Moderate Pain) 5 Days Qty: 10 RF: 0 ketorolac 10 mg Tablet 10 mg PO Q8H PRN (Reason: Pain) 5 Days Qty: 15 RF: 0 Zofran 4 mg tablet 4 mg PO Q8H PRN (Reason: nausea and vomiting) 5 Days Qty: 15 RF: 0 amitriptyline 25 mg Tablet 25 mg PO BEDTIME 30 Days Qty: 30 RF: 0 dicyclomine 10 mg Capsule 10 mg PO Q6H PRN (Reason: Spasms) 30 Days Qty: 60 RF: 0 No Action No Known Home Medications RF: 0 Discharge Orders: Discharge Order (Routine); Ordered 09/10/19 Ordered By: Damián Luciano Referrals: Vasu Willis MD [Physician] - Discharge Diet: Advance as tolerated Discharge Activity: Resume usual activity Patient Instructions: Irritable Bowel Syndrome (DC) Activity Restrictions/Additional Instructions: -Patient is not to use opoid and drive or operate heavy machinery -[facility] -use dicyclomine as needed -us amitriptyline nightly -follow up with primary care in one week -if you have worsening abdominal pain, fevers, chills ,diarrhea, or uncontrolled nausea, comeback to the emergency Discharge Attestations Time Spent in Discharge Care*: less than 30 min Quality Metrics Clinical Quality Measures During this hospital stay, did patient experience: None Coding Level of Care Code Acute Digital Strategy Specialist for [facility] Diagnoses Abdominal pain R10.31 Abdominal location: right lower quadrant
== END 2019-09-10 16:13 | disposition home or self-care (01) ==
LOC: ER 17:08 → MEDSURG 17:25
PROVIDERS: Emergency Medicine; Family Medicine; Admitting Provider Family Medicine; Emergency Provider Physician Assistant; PCP Family Medicine; Visit Provider Family Medicine
DX: R10.31 Right lower quadrant pain (principal); F17.210 Nicotine dependence, cigarettes, uncomplicated; Z86.14 Personal history of Methicillin resistant Staphylococcus aureus infection
CPT/HCPCS: 12345; 36415; 74177; 76705; 80053; 81003; 83605; 83690; 83735; 84100; 84145; 85025; 85651; 86140; 87040; 94664; 96360; 96361; 96372; 96374; 96375; 96376; 99283; 99285; C9113; G0378; J1170; J1650; J2270; J2405; J3010; J7030; Q9967